=== PATIENT | male | born 1955 | race Caucasian/White ===

== ENCOUNTER 2017-08-24 13:28 | Day surgery (SDC) | payer OTHER ==
[~2017-08-24] VITALS: Ht 152.4 cm; Wt 62.1 kg
[2017-08-24] MEDS ORDERED: VITAMINS (14:38)
[2017-08-24 14:49] VITALS: Ht 152.4 cm; Wt 62.1 kg
[2017-08-24 15:53] VITALS: BP 144/77; PULSE 60; RESP 16
--- NOTE | 2017-08-24 16:25 | OPPN ---
Date/Time of Note Date/Time of Note DATE: 08/24/17 TIME: 16:24 Operative Report Preoperative Diagnosis Screening Postoperative Diagnosis Internal hemorrhoids No colon neoplasm was identified Operation/Procedure Performed Colonoscopy Surgeon see signature line radiology physician assistant None Anesthesia: moderate sedation Estimated blood loss: none Transfusion Required none Specimen None Grafts/Implants none Complications none SYED MONCADA MD Aug 24, 2017 16:25
[2017-08-24] MEDS ORDERED: FENTAnyl 50 MCG/ML VIAL ONE (16:31)
[2017-08-24] MEDS ORDERED: MIDAZOLAM 1 MG/ML 2 ML INJ ONE ×2 (16:31)
[2017-08-24 16:42] VITALS: BP 128/70; PULSE 60; RESP 16
--- NOTE | 2017-08-25 05:18 | GILP ---
DATE OF PROCEDURE: NAME OF PROCEDURE: Colonoscopy. SURGEON: Syed Morales MD PREOPERATIVE DIAGNOSIS: Screening colonoscopy. POSTOPERATIVE DIAGNOSES: 1. Colonoscopy all the way to the cecum. 2. Internal hemorrhoids. 3. No colon neoplasm was identified. INDICATION FOR THE PROCEDURE: Mr. Jerrell Stark is a 61-year-old male patient who was scheduled for id reening colonoscopy. The procedure and possible complications were well explained to the patient. The patient understood and consented to the procedure. DESCRIPTION OF PROCEDURE: Under the influence of fentanyl and Versed, the colonoscope was carefully introduced in the rectum and under direct vision, it was advanced all the way to the cecum. FINDINGS: The patient had internal hemorrhoids. No colon neoplasm was identified. He tolerated the procedure very well, and there was no complication from the procedure. At the end of the procedure, he was awake with stable vital signs, and he was discharged home to the care of hi s family. IMPRESSION: 1. Colonoscopy all the way to the cecum. 2. Internal hemorrhoids. 3. No colon neoplasm was identified. PLAN: Next screening colonoscopy in 10 years. Dictated By: SYED TURNER/DESTINEE Conf#: [id number] DID#: [id number]
== END 2017-08-24 17:23 | disposition home or self-care (01) ==
LOC: GIL 13:28
PROVIDERS: ATTEND Internal Medicine Gastroenterology
DX: Z12.11 Encounter for screening for malignant neoplasm of colon (principal); K64.8 Other hemorrhoids
CPT/HCPCS: 45378; J2250; J3010